=== PATIENT | male | born 1975 | race Caucasian/White ===

== ENCOUNTER 2023-01-02 09:35 | Day surgery (SDC) | payer BC ==
[2022-12-25 15:20] VITALS: BMI 25.8
[2023-01-02 10:04] VITALS: RESP 19
[2023-01-02 11:46] VITALS: PULSE 60
[2023-01-02 11:51] VITALS: BP 110/70; TEMP 97.8
== END 2023-01-02 11:51 | disposition home or self-care (01) ==
LOC: FASU-ENDO 09:35
PROVIDERS: ATTEND Internal Medicine Gastroenterology
PROC: 0DB78ZX Excision of Stomach, Pylorus, Via Natural or Artificial Opening Endoscopic, Diagnostic (ICD-10-PCS; 2023-01-02)
PROC: 0DB38ZX Excision of Lower Esophagus, Via Natural or Artificial Opening Endoscopic, Diagnostic (ICD-10-PCS; 2023-01-02)
PROC: 0DB98ZX Excision of Duodenum, Via Natural or Artificial Opening Endoscopic, Diagnostic (ICD-10-PCS; principal; 2023-01-02 10:59)
DX: K29.50 Unspecified chronic gastritis without bleeding (principal); K21.00 Gastro-esophageal reflux disease with esophagitis, without bleeding; K44.9 Diaphragmatic hernia without obstruction or gangrene; R10.13 Epigastric pain
CPT/HCPCS: 88305-TC; 88342-TC

== ENCOUNTER 2023-02-17 09:39 | Day surgery (SDC) | payer BC ==
[2023-02-12 12:53] VITALS: BMI 26.4
[2023-02-17] MEDS ORDERED: PROPOFOL 120 ML ONE (11:28)
[2023-02-17 12:14] VITALS: TEMP 98
[2023-02-17 12:37] VITALS: BP 114/68; PULSE 70; RESP 20
== END 2023-02-17 12:25 | disposition home or self-care (01) ==
LOC: FASU-ENDO 09:39
PROVIDERS: ATTEND Internal Medicine Gastroenterology
PROC: 0DBN8ZX Excision of Sigmoid Colon, Via Natural or Artificial Opening Endoscopic, Diagnostic (ICD-10-PCS; principal; 2023-02-17 11:18)
DX: Z12.11 Encounter for screening for malignant neoplasm of colon (principal); K63.5 Polyp of colon; K64.1 Second degree hemorrhoids; K57.30 Diverticulosis of large intestine without perforation or abscess without bleeding; Z86.010 Personal history of colon polyps
CPT/HCPCS: 88305-TC